=== PATIENT | male | born 1950 | race Caucasian/White ===

== ENCOUNTER 2017-01-06 10:16 | Outpatient (CLI) ==
--- NOTE | 2017-01-06 13:04 | DI ---
EXAM: Three views of the right foot HISTORY: Unspecified injury to right foot. COMPARISON: None FINDINGS: There is minimal linear lucency near the base of the proximal phalanx of the fourth toe wh ich is best visualized on frontal view. There is degenerative change of the first MTP joint. The r emaining MTP joints are normal. There is mild degenerative change of the great toe IP joint. The a rch is maintained. There is minimal degenerative change in the midfoot. The soft tissues are unrem arkable. IMPRESSION: 1. Scattered degenerative change in the midfoot, first MTP joint and first IP joint. 2. Questionable linear lucency near the base of the fourth proximal phalanx. This may represent ar tifact of technique and positioning, but nondisplaced fracture cannot be excluded. Recommend focal physical exam for point tenderness.
== END 2017-01-06 10:17 | disposition home or self-care (01) ==
LOC: RAD 10:16
PROVIDERS: ATTEND General Practice
DX: S99.921A Unspecified injury of right foot, initial encounter (principal)

== ENCOUNTER 2017-01-13 11:40 | Outpatient (CLI) ==
[2017-01-13 13:09] LABS: BASOPHILS % (AUTO) 0.5 % (0.0-3.0); EOSINOPHILS # (AUTO) 0.5 K/ul (0.0-0.7); EOSINOPHILS % (AUTO) 5.3 % (0.0-7.0); HEMATOCRIT 42.1 % (42.0-52.0); HEMOGLOBIN 14.1 g/dl (14.0-18.0); IMMATURE GRANULOCYTE % (AUTO) 0.5 % (0.0-5.0); LYMPHOCYTES # (AUTO) 2.2 K/uL (0.60-3.4); LYMPHOCYTES % (AUTO) 25.5 (10.0-50.0); MEAN CORPUSCULAR HEMOGLOBIN 30.3 pg (27.0-31.0); MEAN CORPUSCULAR HGB CONC 33.5 (31.8-35.4); MEAN CORPUSCULAR VOLUME 90.5 fl (80.0-94.0); MONOCYTES # (AUTO) 0.9 K/uL (0.4-2.0); MONOCYTES % (AUTO) 10.4 (0-10); NEUTROPHILS % (AUTO) 57.8; PLATELET COUNT 313 10^3/uL (140-440); RED BLOOD COUNT 4.65 10^6/ul (4.70-6.10); WHITE BLOOD COUNT 8.64 K/ul (4.2-10.2)
[2017-01-13 13:33] LABS: BILIRUBIN,URINE Negative (NEGATIVE); KETONES,URINE Negative (NEGATIVE); LEUKOCYTE ESTERASE ,URINE Negative (NEGATIVE); NITRITE,URINE Negative (NEGATIVE); PROTEIN,URINE 1+ (NEGATIVE); URINE, BLOOD Trace-intact (NEGATIVE)
[2017-01-13 13:40] LABS: ADD URINE MICROSCOPIC YES
[2017-01-13 13:49] LABS: ALBUMIN/GLOBULIN RATIO 0.95; ANION GAP 12.7; BILIRUBIN,TOTAL 0.39 mg/dL (0.00-1.20); BUN/CREATININE RATIO 12.38; CALCIUM 10.2 mg/dL (8.2-10.2); CHOL/HDL RATIO 4.1 (4.5-6.4); CREATININE 1.05 mg/dL (0.60-1.10); POTASSIUM 3.7 mmol/L (3.5-5.1); TOTAL PROTEIN 8.2 g/dL (5.8-8.1)
[2017-01-15 10:14] LABS: INSULIN 162.8 uIU/mL (2.6-24.9)
== END 2017-01-13 11:41 | disposition home or self-care (01) ==
LOC: LAB 11:40
PROVIDERS: ATTEND General Practice
DX: I10 Essential (primary) hypertension (principal); M54.5 Low back pain; R73.03 Prediabetes; Z79.899 Other long term (current) drug therapy; Z12.5 Encounter for screening for malignant neoplasm of prostate
CPT/HCPCS: 36415; 80053; 80061; 81001; 83036; 83525; 85025

== ENCOUNTER 2017-05-11 16:06 | Outpatient (CLI) | payer OTHER ==
[2017-05-11 16:51] LABS: BILIRUBIN,URINE Negative (NEGATIVE); KETONES,URINE Negative (NEGATIVE); LEUKOCYTE ESTERASE ,URINE Negative (NEGATIVE); NITRITE,URINE Negative (NEGATIVE); PROTEIN,URINE Negative (NEGATIVE); URINE, BLOOD Trace-intact (NEGATIVE)
[2017-05-11 16:53] LABS: ADD URINE MICROSCOPIC YES; BACTERIA,URINE TRACE (NOT PRESENT); BASOPHILS % (AUTO) 0.6 % (0.0-3.0); EOSINOPHILS # (AUTO) 0.5 K/ul (0.0-0.7); EOSINOPHILS % (AUTO) 6.7 % (0.0-7.0); HEMATOCRIT 39.5 % (42.0-52.0); HEMOGLOBIN 13.7 g/dl (14.0-18.0); IMMATURE GRANULOCYTE % (AUTO) 0.6 % (0.0-5.0); LYMPHOCYTES # (AUTO) 2.5 K/uL (0.60-3.4); MEAN CORPUSCULAR HEMOGLOBIN 30.5 pg (27.0-31.0); MEAN CORPUSCULAR HGB CONC 34.7 (31.8-35.4); MONOCYTES # (AUTO) 0.7 K/uL (0.4-2.0); NEUTROPHILS # (AUTO) 3.1 K/ul (2.0-6.9); NEUTROPHILS % (AUTO) 45.1; PLATELET COUNT 253 10^3/uL (140-440); RED BLOOD COUNT 4.49 10^6/ul (4.70-6.10); WHITE BLOOD COUNT 6.87 K/ul (4.2-10.2)
[2017-05-11 17:08] LABS: ALBUMIN 3.9 g/dL (3.4-5.0); ALBUMIN/GLOBULIN RATIO 1.03; ANION GAP 13.5; BILIRUBIN,TOTAL 0.37 mg/dL (0.00-1.20); BUN/CREATININE RATIO 15.21; CHOL/HDL RATIO 3.5 (4.5-6.4); CREATININE 0.92 mg/dL (0.60-1.10); POTASSIUM 3.5 mmol/L (3.5-5.1); TOTAL PROTEIN 7.7 g/dL (5.8-8.1)
== END 2017-05-11 16:07 | disposition home or self-care (01) ==
LOC: LAB 16:06
PROVIDERS: ATTEND General Practice
DX: I10 Essential (primary) hypertension (principal); R73.03 Prediabetes; R73.09 Other abnormal glucose; Z86.39 Personal history of other endocrine, nutritional and metabolic disease; Z79.899 Other long term (current) drug therapy
CPT/HCPCS: 36415; 80053; 80061; 81001; 83036; 83525; 85025

== ENCOUNTER 2017-06-08 09:12 | Outpatient (CLI) | payer OTHER ==
[2017-06-08 12:26] VITALS: BMI 38.3
== END 2017-06-08 09:13 | disposition home or self-care (01) ==
LOC: DIETCN 09:12
PROVIDERS: ATTEND General Practice
DX: E11.9 Type 2 diabetes mellitus without complications (principal); I10 Essential (primary) hypertension
CPT/HCPCS: 97802

== ENCOUNTER 2017-06-22 12:22 | Outpatient (CLI) ==
[2017-06-22 13:40] LABS: AMYLASE 52 U/L (25-115); GLUCOSE 137 mg/dL (82-115); LIPASE 20 U/L (8-78)
== END 2017-06-22 12:23 | disposition home or self-care (01) ==
LOC: LAB 12:22
PROVIDERS: ATTEND General Practice
DX: E11.9 Type 2 diabetes mellitus without complications (principal); Z79.899 Other long term (current) drug therapy
CPT/HCPCS: 36415; 82150; 82947; 83690

== ENCOUNTER 2017-07-16 09:15 | Outpatient (CLI) | payer OTHER ==
--- NOTE | 2017-07-16 09:48 | DI ---
EXAM: Two views of the chest. History: Short of breath Comparison: Chest radiograph 03/06/2016 Findings: Heart size is normal. No focal consolidation. No appreciable pleural fluid and no pneum othorax. No acute osseous abnormalities. Partially visualized postsurgical changes of the lumbar s pine. Impression: No acute cardiopulmonary process.
== END 2017-07-16 09:16 | disposition home or self-care (01) ==
LOC: RAD 09:15
PROVIDERS: ATTEND Nurse Practitioner Family
DX: E11.9 Type 2 diabetes mellitus without complications (principal); R06.02 Shortness of breath
CPT/HCPCS: 36415; 82947; 83036

== ENCOUNTER 2017-08-25 16:37 | Outpatient (CLI) | payer OTHER ==
[2017-08-25 16:48] LABS: BASOPHILS % (AUTO) 0.6 % (0.0-3.0); EOSINOPHILS # (AUTO) 0.4 K/ul (0.0-0.7); EOSINOPHILS % (AUTO) 6.8 % (0.0-7.0); HEMATOCRIT 38.7 % (42.0-52.0); HEMOGLOBIN 13.2 g/dl (14.0-18.0); IMMATURE GRANULOCYTE % (AUTO) 0.3 % (0.0-5.0); LYMPHOCYTES # (AUTO) 2.4 K/uL (0.60-3.4); LYMPHOCYTES % (AUTO) 36.7 (10.0-50.0); MEAN CORPUSCULAR HEMOGLOBIN 30.2 pg (27.0-31.0); MEAN CORPUSCULAR HGB CONC 34.1 (31.8-35.4); MEAN CORPUSCULAR VOLUME 88.6 fl (80.0-94.0); MONOCYTES # (AUTO) 0.7 K/uL (0.4-2.0); MONOCYTES % (AUTO) 10.6 (0-10); NEUTROPHILS # (AUTO) 2.9 K/ul (2.0-6.9); PLATELET COUNT 276 10^3/uL (140-440); RED BLOOD COUNT 4.37 10^6/ul (4.70-6.10); WHITE BLOOD COUNT 6.43 K/ul (4.2-10.2)
[2017-08-25 17:21] LABS: ALBUMIN 3.9 g/dL (3.4-5.0); ALBUMIN/GLOBULIN RATIO 0.98; ANION GAP 10.6; BILIRUBIN,TOTAL 0.45 mg/dL (0.00-1.20); BUN/CREATININE RATIO 21.17; CALCIUM 10.3 mg/dL (8.2-10.2); CREATININE 0.85 mg/dL (0.60-1.10); POTASSIUM 3.6 mmol/L (3.5-5.1); TOTAL PROTEIN 7.9 g/dL (5.8-8.1)
== END 2017-08-25 16:38 | disposition home or self-care (01) ==
LOC: LAB 16:37
PROVIDERS: ATTEND General Practice
DX: E11.9 Type 2 diabetes mellitus without complications (principal); I10 Essential (primary) hypertension; Z79.899 Other long term (current) drug therapy
CPT/HCPCS: 36415; 80053; 82150; 83036; 83690; 84443; 85025

== ENCOUNTER 2017-09-09 06:14 | Outpatient (CLI) ==
[2017-09-09] MEDS ORDERED: ATROPINE SULFATE PFS ONE (06:45)
[2017-09-09] MEDS ORDERED: DOBUTAMINE 250 ML IV ONE (06:45)
--- NOTE | 2017-09-09 12:42 | DOBSTECHO ---
Ordering Physician: ALONA CARLOS Date of Test: 09/09/2017 Reason for Examination: SHORT OF BREATH, HYPERTENSION Current Medications: BACLOFEN, AMITRIPTYLINE, TRIPILIX, LEVOTHYROXINE, MORPHINE SULPHATE, DULAGLUTIDE Height: 75 INCHES Weight: 280 LBS Target Heart Rate: 130/153 ST Segment Stage Time HR BPM BP mmhg Rhythm +/- Up Down Comments/Symptoms Control Sitting 68 126/72 SR NONE Dobutamine 250mg/D5W 5cmg/KG/mn 10cmg/KG/mn 3" 74 128/60 SR NONE 15cmg/KG/mn 2" 81 140/50 SR NONE 20cmg/KG/mn 2" 84 136/50 SR NONE 25cmg/KG/mn 2" 88 146/40 SR NONE 30cmg/KG/mn 2" 90 144/40 SR NONE 35cmg/KG/mn 1:54 96 142/40 NONE 40cmg/KG/mn Time: 5" HR B/P Time: 10" HR B/P Time: HR B/P Recovery 85 130/50 Recovery 76 Recovery Total Time: 12:54 Maximum Heart Rate Reached: 96 SAO2 92% AT REST, 94% WITH DOBUTAMINE INFUSION Interpretation: 1. TEST POSITIVE FOR ISCHEMIC ST-T WAVE CHANGES 2. NO CHEST PAIN OR CHEST DISCOMFORT 3. NORMAL LEFT VENTRICULAR CONTRACTILITY RESTING AND WITH DOBUTAMINE INFUSION 4. RECOMMEND STRESS SESTAMIBI MTDD
--- NOTE | 2017-09-10 12:15 | ECHOSTRESS ---
Date of Exam: 09/09/17 Ordering Physician: ALONA CARLOS Reason for Echo: SOB, HYPERTENSION, DOBUTAMINE STRESS --ISCHEMIA M-Mode Normal Adult Results LV Dimensions Normal Adult Results AoV Opening excursions >1.6 LVEDD-base- 3.5-5.8 Ao root dimensions 2.0-3.7 LVESD-base- 3.1-4.6 L. Atrium dimensions 1.9-3.8 Post. Wall thickness 0.8-1.1 IV septum (thickness) 0.7-1.2 Post. Wall excursion 0.72-1.3 Septal motion Systolic motion R. Ventricular cavity 1.5-2.0 LVEF 60% Paradoxical septal wall motion 2-D: NORMAL LEFT VENTRICULAR CONTRACTILITY--RESTING AND WITH DOBUTAMINE INFUSION M-MODE: MV: AV: TV: PV: CHAMBER SIZE: WALL MOTION: NORMAL LEFT VENTRICULAR CONTRACTILITY--RESTING AND WITH DOBUTAMINE INFUSION PERICARDIUM: INTERPRETATION: 1. NORMAL LEFT VENTRICULAR CONTRACTILITY--RESTING AND WITH DOBUTAMINE INFUSION MTDD
== END 2017-09-09 06:15 | disposition home or self-care (01) ==
LOC: CAR 06:14
PROVIDERS: ATTEND General Practice
DX: R06.02 Shortness of breath (principal); I10 Essential (primary) hypertension

== ENCOUNTER 2017-11-18 13:13 | Outpatient (CLI) ==
[2017-11-18 13:20] LABS: BASOPHILS # (AUTO) 0.1 K/uL (0-0.2); BASOPHILS % (AUTO) 0.8 % (0.0-3.0); EOSINOPHILS # (AUTO) 0.5 K/ul (0.0-0.7); HEMATOCRIT 35.4 % (42.0-52.0); IMMATURE GRANULOCYTE % (AUTO) 0.2 % (0.0-5.0); LYMPHOCYTES # (AUTO) 2.5 K/uL (0.60-3.4); LYMPHOCYTES % (AUTO) 38.5 (10.0-50.0); MEAN CORPUSCULAR HEMOGLOBIN 29.9 pg (27.0-31.0); MEAN CORPUSCULAR HGB CONC 33.9 (31.8-35.4); MEAN CORPUSCULAR VOLUME 88.1 fl (80.0-94.0); MONOCYTES # (AUTO) 0.7 K/uL (0.4-2.0); MONOCYTES % (AUTO) 10.5 (0-10); NEUTROPHILS # (AUTO) 2.8 K/ul (2.0-6.9); PLATELET COUNT 284 10^3/uL (140-440); RED BLOOD COUNT 4.02 10^6/ul (4.70-6.10); WHITE BLOOD COUNT 6.39 K/ul (4.2-10.2)
[2017-11-18 13:24] LABS: BILIRUBIN,URINE Negative (NEGATIVE); KETONES,URINE Negative (NEGATIVE); LEUKOCYTE ESTERASE ,URINE Negative (NEGATIVE); NITRITE,URINE Negative (NEGATIVE); PROTEIN,URINE Negative (NEGATIVE); URINE, BLOOD Trace-intact (NEGATIVE)
[2017-11-18 13:26] LABS: ADD URINE MICROSCOPIC YES
[2017-11-18 13:32] LABS: ALBUMIN 3.9 g/dL (3.4-5.0); ALBUMIN/GLOBULIN RATIO 1.11; ANION GAP 8.7; BILIRUBIN,TOTAL 0.5 mg/dL (0.00-1.20); BUN/CREATININE RATIO 19.78; CALCIUM 9.7 mg/dL (8.2-10.2); CHOL/HDL RATIO 2.4 (4.5-6.4); CREATININE 0.91 mg/dL (0.60-1.10); POTASSIUM 3.7 mmol/L (3.5-5.1); TOTAL PROTEIN 7.4 g/dL (5.8-8.1)
== END 2017-11-18 13:14 | disposition home or self-care (01) ==
LOC: LAB 13:13
PROVIDERS: ATTEND General Practice
DX: E11.9 Type 2 diabetes mellitus without complications (principal); I10 Essential (primary) hypertension; Z79.899 Other long term (current) drug therapy
CPT/HCPCS: 36415; 80053; 80061; 81001; 83036; 85025

== ENCOUNTER 2017-11-24 10:56 | Outpatient (CLI) ==
--- NOTE | 2017-11-24 11:55 | US ---
EXAM: Ultrasound bilateral carotid duplex. HISTORY: Dizziness and giddiness. COMPARISON: 09/11/2010. TECHNIQUE: Multiple connelly scale and color Doppler images were obtained. FINDINGS: Please note that estimates of internal carotid artery stenoses are based upon NASCET crite destiny. Right carotid: Mild plaquing noted without 50% or greater stenosis. Peak systolic velocity measurem ent in the right internal carotid artery is 1.2 meters per second. Right internal to common carotid artery peak systolic velocity ratio measures 1.0. End diastolic velocity measurement in the right in ternal carotid artery is 0.3 meters per second. Flow in the right vertebral artery is antegrade. Left carotid: Mild plaquing noted without 50% or greater stenosis. Peak systolic velocity measureme nt in the left internal carotid artery is 0.7 meters per second. Left internal to common carotid art willis peak systolic velocity ratio measures 0.5. End diastolic velocity measurement in the left internet project manager al carotid artery measures 0.2 meters per second. Flow in the left vertebral artery is antegrade. IMPRESSION: 1. No evidence for 50% or greater stenosis in the right or left internal carotid artery. 2. Antegrade flow in both vertebral arteries.
== END 2017-11-24 10:57 | disposition home or self-care (01) ==
LOC: RAD 10:56
PROVIDERS: ATTEND General Practice
DX: R42 Dizziness and giddiness (principal); H53.483 Generalized contraction of visual field, bilateral

== ENCOUNTER → 2017-12-01 | Outpatient (POV) | LOC: OUTPT 00:01 | PROVIDERS: ATTEND Otolaryngology | DX: R42 Dizziness and giddiness (principal) | CPT/HCPCS: 92557; 92567 ==

== ENCOUNTER 2018-02-19 14:41 | Outpatient (CLI) | END 2018-02-19 14:42 | disposition home or self-care (01) | LOC: FCC-LAB 14:41 | PROVIDERS: ATTEND General Practice | DX: E11.9 Type 2 diabetes mellitus without complications (principal); I10 Essential (primary) hypertension; R63.4 Abnormal weight loss; Z79.899 Other long term (current) drug therapy; Z12.5 Encounter for screening for malignant neoplasm of prostate | CPT/HCPCS: 36415; 80053; 80061; 81001; 83036; 85025 ==

== ENCOUNTER 2018-02-23 12:06 | Outpatient (CLI) | payer OTHER | END 2018-02-23 12:07 | disposition home or self-care (01) | LOC: FCC-LAB 12:06 | PROVIDERS: ATTEND General Practice | DX: D64.9 Anemia, unspecified (principal) | CPT/HCPCS: 82272 ==

== ENCOUNTER 2018-04-27 09:49 | Day surgery (SDC) ==
[2018-04-27] MEDS ORDERED: LIDOCAINE 1% 20 ML MDV ID STA (10:55)
[2018-04-27] MEDS ORDERED: SUBLIMAZE ONE (12:13)
[2018-04-27] MEDS ORDERED: DIPRIVAN 20 ML VIAL IVP ONE (12:13)
[2018-04-27] MEDS ORDERED: VERSED ONE (12:13)
[2018-04-27 13:30] VITALS: BP 146/81
--- NOTE | 2018-04-28 10:26 | OP ---
INDICATIONS FOR PROCEDURE: 68-year-old gentleman presents for colonoscopy exam. He has a remote history of adenomatous polyps with his last colonoscopy over 9 years ago. He does have a chronic normocytic anemia. He does tell me that he took his CLINPIC prep but only has had one large bowel movement. MEDICATIONS: SEE ANESTHESIA NOTES. PROCEDURE: COLONOSCOPY TO THE RECTUM THEN ABORTED. REPORT: The risks, benefits, alternatives and limitations were discussed in detail with the patient. We discussed attempted colonoscopy with the prep and results. We discussed scheduling a different time. Since we are not sure how well he is cleaned out we decided to pursue colonoscopy. Unfortunately, the prep was inadequate. A digital rectal exam revealed good tone, no masses. He was adequately sedated. I introduced the scope in the rectum. I could see solid and liquid stool. I advanced the scope around the first turn into the distal sigmoid colon and encountered more solid stool and liquid stool. The view was obscured. It was inadequate to perform colonoscopy exam therefore the scope was withdrawn from the patient. The patient tolerated this limited procedure well with stable vital signs and pulse oximetry throughout. IMPRESSION: 1. Inadequate prep not allowing colonoscopy exam. RECOMMENDATIONS: 1. Will reschedule his colonoscopy at a different date. If he is willing, we can schedule this tomorrow with additional prep today. CC: DR. BREANNA HUANG
[2018-04-28 15:29] VITALS: TEMP 98.6
== END 2018-04-27 13:20 | disposition home or self-care (01) ==
LOC: SURG 09:49
PROVIDERS: ATTEND Internal Medicine Gastroenterology
DX: D64.9 Anemia, unspecified (principal); Z86.010 Personal history of colon polyps

== ENCOUNTER 2018-06-01 12:42 | Outpatient (CLI) | END 2018-06-01 12:43 | disposition home or self-care (01) | LOC: FCC-LAB 12:42 | PROVIDERS: ATTEND General Practice | DX: R10.9 Unspecified abdominal pain (principal); R25.2 Cramp and spasm; E11.9 Type 2 diabetes mellitus without complications; I10 Essential (primary) hypertension; D64.9 Anemia, unspecified; Z79.899 Other long term (current) drug therapy | CPT/HCPCS: 36415; 80053; 80061; 81001; 82150; 83036; 83690; 83735; 85025 ==

== ENCOUNTER 2018-06-03 09:22 | Outpatient (CLI) | payer OTHER ==
--- NOTE | 2018-06-03 12:17 | CT ---
EXAM: CT abdomen pelvis with and without contrast HISTORY: Abdominal pain COMPARISON: None TECHNIQUE: Serial axial images of the abdomen pelvis were performed before and after 75 mL is of Omn ipaque IV contrast was administered. These were obtained from the lung bases through the inferior pe lvis. FINDINGS: The lung bases demonstrate ground-glass consolidation and nodularity in right middle lobe and left lower lobe. The left kidney demonstrates a nonobstructing 0.8 cm stone centrally. There is an exophytic low atte nuation lesion off the left kidney measuring 2.0 x 3.4 cm. Additional smaller lesion is identified. T his has Hounsfield units suggestive of a cyst. The liver is unremarkable. The gallbladder is disten ded without visualized stones. The adrenal glands are unremarkable. The spleen is normal. The panc reas is unremarkable. The stomach is mildly distended. Small bowel in the abdomen pelvis is unremarkable. The colon is unremarkable. There is significant artifact limiting this evaluation from lumbar spine fusion hardware and bilateral hip arthroplasties. Osseous structures demonstrates degenerative disease of the spine. IMPRESSION: 1. No acute intra-abdominal or pelvic process to account for patient's symptoms. 2. Nonobstructing left renal stone. An exophytic left renal cyst. 3. 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 4. Consolidation in the right middle lobe and the left lung base may represent pneumonia.
== END 2018-06-03 09:23 | disposition home or self-care (01) ==
LOC: RAD 09:22
PROVIDERS: ATTEND General Practice
DX: R10.9 Unspecified abdominal pain (principal)

== ENCOUNTER 2018-06-11 10:52 | Outpatient (CLI) | END 2018-06-11 10:53 | disposition home or self-care (01) | LOC: FCC-LAB 10:52 | PROVIDERS: ATTEND General Practice | DX: E11.9 Type 2 diabetes mellitus without complications (principal); I10 Essential (primary) hypertension; M54.5 Low back pain; D64.9 Anemia, unspecified; R35.0 Frequency of micturition; Z79.899 Other long term (current) drug therapy | CPT/HCPCS: 36415; 80053; 80061; 81001; 83036; 85025 ==

== ENCOUNTER 2018-06-16 07:52 | Outpatient (CLI) ==
--- NOTE | 2018-06-16 11:50 | CT ---
Exam: CT of the chest without intravenous contrast followed by CT of the chest with intravenous cont rast. Comparison: Chest x-ray performed 07/16/2017. CT chest performed 07/27/2014. Reason for exam: Solitary pulmonary nodule. FINDINGS: Parenchymal opacities are seen in the right middle and left lower lobes with parenchymal c hanges and consolidations. Nodular consolidation is seen in the left hilar region measuring approxim ately 2.5 cm on axial image number 50. No pleural effusion, or focal consolidation. The aorta is normal in course and caliber. The heart is not enlarged. No pneumothorax or pleural effusion. No suspicious appearing osteoblastic or osteolytic lesions. Degenerative disease is seen in the acromioclavicular joint spaces. The heart is not enlarged. The partially imaged upper abdomen appears grossly unremarkable. Impression: 1. Parenchymal changes/scarring or inflammation in the right middle and left lower lobes as seen on axial images 35, 42, 45, and 49. These findings appear more nodular on today's exam when compared to previous imaging. Follow-up imaging and 3-6 months is recommended to document resolution/stability. 2. No pneumothorax or pleural effusion
== END 2018-06-16 07:53 | disposition home or self-care (01) ==
LOC: RAD 07:52
PROVIDERS: ATTEND General Practice
DX: R91.1 Solitary pulmonary nodule (principal); R91.8 Other nonspecific abnormal finding of lung field

== ENCOUNTER 2018-09-07 09:41 | Outpatient (CLI) ==
--- NOTE | 2018-09-07 12:47 | CT ---
EXAM: CT chest without contrast HISTORY: Multiple lung nodules COMPARISON: 06/16/2018 TECHNIQUE: CT chest performed without intravenous contrast. Coronal and sagittal reformatted images obtained FINDINGS: Thoracic inlet unremarkable. Heart normal size. Mild coronary calcification. No pericardi al effusion. Aorta normal in caliber. Esophagus unremarkable. Evaluation for lymphadenopathy limit ed without contrast. No lymphadenopathy identified. Mild bilateral gynecomastia. Liver diffusely d ecreased attenuation. Left renal cyst. No acute abnormalities of the bones. Degenerative change in the spine. Lumbar spinal fusion hardware is incompletely imaged. Central airway patent. No pleura l effusion or pneumothorax. Similar appearing bilateral nodular consolidations with associated ground -glass nodularity, for example in the right middle lobe image 37 and 44 - 48 and in the left lower lo be images 47 - 56. 4 mm micronodule right lung image 40 is unchanged from 2014, consistent with benig n etiology. IMPRESSION: 1. Similar appearing bilateral nodular consolidations with associated ground-glass nodularity. Findi ngs are most likely infectious/inflammatory. Recommend CT follow-up in 3 months for reevaluation. 2. Mild coronary calcification. 3. Hepatic steatosis.
--- NOTE | 2018-09-07 12:48 | DI ---
Exam: KUB. HISTORY: Nephrolithiasis. Comparison: CT abdomen and pelvis 06/03/2018. Findings: Three supine images of the abdomen and pelvis are submitted. These again demonstrate coar se calcifications over the left renal silhouette, the largest is at the lower pole measuring up to ap proximately 1.5 cm x 0.7 cm. The right renal silhouette is obscured by bowel contents. There is no dilated bowel, bowel wall edema or pneumatosis. Bilateral hip arthroplasties and lumbosacral fixatio n hardware are noted. There has been prior L4, L5 and S1 laminectomy. Impressions: Redemonstration of left-sided nephrolithiasis with the largest stone over the lower inge e renal silhouette measuring 15 mm x 7 mm. The right renal silhouette is obscured by bowel contents.
== END 2018-09-07 09:42 | disposition home or self-care (01) ==
LOC: RAD 09:41
PROVIDERS: ATTEND Internal Medicine Pulmonary Disease
DX: N20.0 Calculus of kidney (principal); R91.8 Other nonspecific abnormal finding of lung field

== ENCOUNTER 2019-01-19 11:39 | Outpatient (CLI) | END 2019-01-19 11:40 | disposition home or self-care (01) | LOC: RHC-LAB 11:39 | PROVIDERS: ATTEND General Practice | DX: E11.9 Type 2 diabetes mellitus without complications (principal); K76.0 Fatty (change of) liver, not elsewhere classified; E66.9 Obesity, unspecified; Z79.899 Other long term (current) drug therapy | CPT/HCPCS: 36415; 80053; 81001; 83036; 85025 ==

== ENCOUNTER 2019-01-26 07:46 | Outpatient (CLI) | payer OTHER ==
--- NOTE | 2019-01-26 10:05 | CT ---
EXAM: CT ABDOMEN AND PELVIS HISTORY: Obesity, abdominal pain lower aspect TECHNIQUE: CT abdomen and pelvis with intravenous contrast. Images were reconstructed using 5 mm se ction thickness. Reformations were prepared. 75 mL Omnipaque. COMPARISON: 06/03/2018 FINDINGS: Liver has mild fatty infiltration. No focal hepatic or splenic lesions. The gallbladder is mildly d istended, similar to that previously seen. No evidence of gallbladder inflammation or gallbladder ca lculi by CT. Pancreas and adrenal glands are within normal limits. Cystic masses of the left renal cortex largest exophytic inferiorly at 3.6 cm having greater than water attenuation and possibly slig htly enlarged since previous exam. Smaller cystic mass of the lateral left renal cortex at 2 cm. Bi lateral nephrolithiasis with a few punctate stones on the right and largest calculus on the left 9.6 mm. No hydronephrosis. Bilateral hip prostheses and extensive stabilization hardware of the spine l lily to artifact significantly obscuring regional evaluation including the lower ureters and urinary bladder/pelvis. The visualized ureters are clear. Moderate atherosclerotic disease is present. The stomach is normal. Normal appendix. The cecum ends in the anterior mid abdomen just right of mi dline. There is no evidence of bowel obstruction. Ventral abdominal wall is intact. Bones are demineralized. Severe degenerative changes of the spine with interspace fusion at the lumbar level. There are patchy opacities of the medial left lung base contiguous with the mediastinal pleura at the level of the mid heart which is slightly more prominen t than previously seen. It is uncertain whether this represents scarring, recurrent pneumonia or ea rly nodule formation. No pneumoperitoneum. IMPRESSION: 1. Artifact limited exam especially in the lower abdomen and pelvis due to spinal hardware and bilat eral hip prostheses. No clear etiology for the patient's lower abdominal pain was found. 2. Bilateral nephrolithiasis. No hydronephrosis. 3. Fatty liver. 4. Left renal cortical cystic masses as described, possibly cysts. Correlation with dedicated renal ultrasound is recommended if not recently performed. 5. Atherosclerosis. 6. Nodular opacities in the left lung base as described in the last paragraph of the report. Consid er follow-up CT thorax in approximately 4 months.
== END 2019-01-26 07:47 | disposition home or self-care (01) ==
LOC: RAD 07:46
PROVIDERS: ATTEND General Practice
DX: R10.9 Unspecified abdominal pain (principal); K76.0 Fatty (change of) liver, not elsewhere classified; E66.9 Obesity, unspecified

== ENCOUNTER 2019-02-09 07:42 | Outpatient (CLI) | payer OTHER ==
--- NOTE | 2019-02-09 10:26 | CT ---
EXAM: CT of the lumbar spine without contrast History: Lower back pain. Comparison: CT abdomen pelvis 01/26/2019 Technique: Multiplanar CT images through the lumbar spine were obtained without the administration o f IV contrast Findings: The liver is fatty. Atherosclerotic vascular calcifications. Osteopenia. No acute fracture or subluxation of the lumbar spine. Grossly intact posterior fusion h ardware at L2-L3 and L4-S1. Partially visualized bilateral hip arthroplasty hardware. T12-L1: No significant bony central canal stenosis or bony neural foraminal narrowing. L1-L2: No significant bony central canal stenosis or bony neural foraminal narrowing. L2-L3: No significant bony central canal stenosis or bony neural foraminal narrowing. L3-L4: No significant bony central canal stenosis. Moderate to severe left and moderate right bony neural foraminal narrowing secondary to ligamentous and facet hypertrophy. L4-L5: No significant bony central canal stenosis. Moderate bilateral bony neural foraminal narrowi ng secondary to ligamentous and facet hypertrophy. L5-S1: No significant bony central canal stenosis. Moderate to severe right and moderate left bony neural foraminal narrowing secondary to ligamentous and facet hypertrophy. Please note that evaluation of the spinal canal is limited due to streak artifact from hardware. Impression: 1. No acute osseous abnormality of the lumbar spine. 2. Grossly intact hardware. 3. Osteopenia. 4. Level by level analysis as detailed above
== END 2019-02-09 07:43 | disposition home or self-care (01) ==
LOC: RAD 07:42
PROVIDERS: ATTEND Physician Assistant Surgical
DX: M54.5 Low back pain (principal)

== ENCOUNTER 2019-02-21 08:12 | Outpatient (CLI) ==
--- NOTE | 2019-02-21 09:20 | US ---
EXAM: Renal ultrasound HISTORY: Other specified disorders of kidneys and ureter COMPARISON: None TECHNIQUE: Renal ultrasound was performed FINDINGS: Right kidney measures 6.8 x 6.5 x 12.4 cm. Left kidney measures 6.3 x 5.2 x 14.3 cm. Joe al cortical echogenicity is normal. No hydronephrosis. Small echogenic foci in both kidneys probabl y related to nephrolithiasis. Exophytic anechoic cyst arises from the left superior kidney measuring 2.4 cm. Exophytic anechoic cyst arising from the left inferior kidney measuring 3.6 cm. Bladder gr ossly unremarkable. Liver diffusely increased in echogenicity. IMPRESSION: 1. No hydronephrosis. 2. Probable bilateral nephrolithiasis. 3. Left renal cysts. 4. Hepatic steatosis.
== END 2019-02-21 08:13 | disposition home or self-care (01) ==
LOC: RAD 08:12
PROVIDERS: ATTEND General Practice
DX: N28.89 Other specified disorders of kidney and ureter (principal)

== ENCOUNTER 2019-05-04 09:00 | Outpatient (CLI) ==
--- NOTE | 2019-05-04 09:42 | CT ---
EXAM: CT of the chest without contrast History: Follow-up lung nodules. Comparison: Chest CT 09/07/2018 Technique: Multiplanar CT images through the thorax were obtained without the administration of IV c ontrast Findings: Heart size is normal. No pericardial effusion. No thoracic aortic aneurysm. No pathologi roscoe enlarged thoracic lymph nodes. No change in the bilateral areas of nodular consolidation. No developing opacities. No pleural fluid and no pneumothorax. Within the visualized upper abdomen, the liver is fatty. Fluid is seen distending the stomach. Smal l left renal cyst again noted. No acute osseous abnormalities. Partially visualized postsurgical ch anges of the lumbar spine. Impression: 1. No change in the bilateral areas of nodular consolidation most compatible with a chronic infectio us or inflammatory process. Consider atypical or chronic pneumonia or sarcoidosis. An indolent aubrey gnancy is not excluded and continued follow-up is recommended. 2. Hepatic steatosis
== END 2019-05-04 09:01 | disposition home or self-care (01) ==
LOC: RAD 09:00
PROVIDERS: ATTEND General Practice
DX: R91.1 Solitary pulmonary nodule (principal)